=== PATIENT | male | born 2000 | race Caucasian/White ===

== ENCOUNTER 2018-08-28 14:46 | Emergency (ER) | payer BC, OTHER ==
[~2018-08-28] VITALS: Ht 175.3 cm; Wt 74.8 kg
--- NOTE | 2018-08-28 14:52 | NUR ---
Arrived as walk in with compliant of left thumb web deep laceration with weak abduction of thumb toward 2nd finger, strength is normal in other planes of movement. Brisk bleeding which is requires pressure to control. Cap refill is brisk and there is good waveform on pulse ox in the thumb and 2nd finger. Pressure dressing applied and bleeding was well controlled. Patient to ER bed 4 to gown for evaluation. Side rails up. Report given to Neal MOTLEY.
[2018-08-28 14:55] VITALS: BP_SYST 154
--- NOTE | 2018-08-28 14:56 | NUR ---
ER Dr. Bustamante at bedside examining patient.
[2018-08-28] MEDS ORDERED: MORPHINE 4 MG/ML INJ. SYRINGE IVP ONE (15:15)
--- NOTE | 2018-08-28 15:27 | NUR ---
Medication given to pt, tolerated well
[2018-08-28 15:33] LABS: EOSINOPHILS % (AUTO) 0.3 % (0.0-4.0); LYMPHOCYTES # (AUTO) 1.3 K/uL (1.0-5.5); MEAN CORPUSCULAR HEMOGLOBIN 30 pg (27-31); MEAN CORPUSCULAR HGB CONC 34 % (32-36); MONOCYTES # (AUTO) 0.5 K/uL (0.0-1.0)
[2018-08-28 15:37] LABS: BASOPHILS % (AUTO) 0.5 % (0.0-2.0); HEMATOCRIT 42.6 % (36-54); HEMOGLOBIN 14.4 g/dL (14.0-18.0); LYMPHOCYTES % (AUTO) 19.4 % (20.5-51.5); MEAN CORPUSCULAR VOLUME 88 fL (79.0-98.0); MONOCYTES % (AUTO) 7.6 % (1.7-9.3); NEUTROPHILS # (AUTO) 4.9 K/uL (1.8-7.7); NEUTROPHILS % (AUTO) 72.2 % (40.0-70.0); PLATELET COUNT (AUTO) 208 K/uL (130-430); RED BLOOD CELL COUNT(AUTO) 4.82 MIL/uL (4.2-6.2); RED CELL DISTRIBUTION WIDTH 12.6 % (9.0-15.0); WHITE BLOOD COUNT (AUTO) 6.7 K/uL (4.5-11.0)
[2018-08-28 15:42] LABS: CALCIUM 9.8 mg/dL (8.4-11.0); CREATININE 1.2 mg/dL (0.55-1.30); POTASSIUM 3.7 mmol/L (3.5-5.1)
[2018-08-28 15:43] LABS: PROTHROMBIN TIME 10.7 SECS (9.5-12.5)
[2018-08-28 15:53] LABS: TOTAL BILIRUBIN 0.5 mg/dL (0.0-1.0)
[2018-08-28] MEDS ORDERED: DIPH-TET-PERTUS Vaccine 0.5 ML VIAL (ADACEL) I.M. ONE (16:00)
[2018-08-28] MEDS ORDERED: NACL 0.9% 1,000 ML IV ONE (16:00)
--- NOTE | 2018-08-28 17:20 | NUR ---
Patient does not wish to proceed with medical care recommended by Dr. Bustamante. Patient given information related to possible complications which could occur as a result of leaving hospital at this time including permanent disability. Patient is aware that a hand surgeon at [facility] has accepted him, states that his brother had a bad experience at [facility]. Patient reports that he intends to go to [place] and seek a hand surgeon there. I advised the patient that we called [facility] and were told they had no beds available, that [facility] stated they are unable to accept him. Patient was advised that this may result in a detremental delay in care. Patient verbalizes understanding of risks involved leaving against medical advice. Patient has signed AMA form. Addendum: 08/28/18 at 1725 by [email or web address] IV DC with cath intact. ID band removed and shredded.
== END 2018-08-28 17:20 | disposition left against medical advice (07) ==
LOC: SED 14:46
DX: S61.411A Laceration without foreign body of right hand, initial encounter (principal); W26.8XXA Contact with other sharp object(s), not elsewhere classified, initial encounter; Y93.89 Activity, other specified; Y92.89 Other specified places as the place of occurrence of the external cause; Y99.8 Other external cause status; R03.0 Elevated blood-pressure reading, without diagnosis of hypertension
CPT/HCPCS: 36415; 80053; 85025; 85610; 90471; 90715; 96374; 99283; J2270; J7030; 99284